=== PATIENT | male | born 1980 | race African-American/Black ===

== ENCOUNTER 2017-02-10 07:11 | Emergency (ER) | payer MEDICAID ==
[~2017-02-10] VITALS: Ht 177.8 cm; Wt 109.0 kg
[2017-02-10] MEDS ORDERED: ONDANSETRON 4MG ODT PO ONE (10:30)
[2017-02-10] MEDS ORDERED: CEFTRIAXONE SODIUM 250 MG/VIAL IM ONE (10:30)
[2017-02-10] MEDS ORDERED: AZITHROMYCIN 500 MG TABLET PO ONE (10:30)
[2017-02-10] MEDS ORDERED: LIDOCAINE HCL 1% 20ML VIAL (Pyxis) INJ INFIL ONE (10:30)
[2017-02-10] MEDS ORDERED: ACETAMINOPHEN 500MG TABLET PO ONE (10:30)
[2017-02-10 11:30] VITALS: BP 134/84
== END 2017-02-10 11:30 | disposition home or self-care (01) ==
LOC: ER 08:33
DX: N34.2 Other urethritis (principal); L72.3 Sebaceous cyst; M25.561 Pain in right knee; J45.909 Unspecified asthma, uncomplicated; Z98.84 Bariatric surgery status; Z88.8 Allergy status to other drugs, medicaments and biological substances
CPT/HCPCS: 96372; 99284; J0696; J3490; Q0162; Z7610

== ENCOUNTER 2017-03-25 18:14 | Emergency (ER) | payer MEDICAID ==
[~2017-03-25] VITALS: Ht 170.2 cm; Wt 113.0 kg
[2017-03-25 18:25] VITALS: BP 146/92
== END 2017-03-26 | disposition left against medical advice (07) ==
LOC: ER 18:25
DX: Z04.1 Encounter for examination and observation following transport accident (principal); Z53.21 Procedure and treatment not carried out due to patient leaving prior to being seen by health care provider

== ENCOUNTER 2017-06-12 19:23 | Emergency (ER) | payer MEDICAID | END 2017-06-12 21:24 | disposition left against medical advice (07) | LOC: ER 19:23 | DX: R42 Dizziness and giddiness (principal); Z53.21 Procedure and treatment not carried out due to patient leaving prior to being seen by health care provider | CPT/HCPCS: 93005 ==

== ENCOUNTER 2018-06-04 13:36 | Emergency (ER) | payer MEDICAID | END 2018-06-04 15:02 | disposition left against medical advice (07) | LOC: ER 13:36 | DX: Z53.21 Procedure and treatment not carried out due to patient leaving prior to being seen by health care provider (principal) ==

== ENCOUNTER 2018-06-12 19:59 | Emergency (ER) | payer MEDICAID ==
[~2018-06-12] VITALS: Ht 177.8 cm; Wt 108.0 kg
[2018-06-12] MEDS ORDERED: SODIUM CHLORIDE 0.9% 1,000 ML IV ONE (22:05)
[2018-06-12] MEDS ORDERED: DEXAMETHASONE 10 MG/ML VIAL IV ONE (22:15)
[2018-06-12] MEDS ORDERED: ACETAMINOPHEN 500MG TABLET PO ONE (22:15)
[2018-06-12 22:39] LABS: BASOPHILS % 0.3 % (0.0-2.0); EOSINOPHILS % 0.3 % (0.0-5.0); HEMATOCRIT. 34.2 % (42.0-52.0); HEMOGLOBIN. 10.8 g/dL (14.0-18.0); LYMPHOCYTES % 22.7 % (20.0-50.0); MEAN CORPUSCULAR HEMOGLOBIN 24.3 pg (28.0-32.0); MEAN CORPUSCULAR VOLUME 76.9 fL (80.0-94.0); MEAN PLATELET VOLUME 8.7 fl (7.4-10.4); MONOCYTES % 9.3 % (2.0-8.0); NEUTROPHILS % 67.4 % (40.0-76.0); PLATELET 309 x1000/uL (130-400); RED BLOOD CELL COUNT 4.45 mill/uL (4.7-6.1); RED CELL DISTRIBUTION WIDTH 18.9 % (11.6-14.6)
[2018-06-12 22:43] LABS: CHLORIDE 104 mEq/L (98-107)
[2018-06-12 22:56] LABS: CLARITY URINE CLEAR (CLEAR); COLOR URINE YELLOW (YELLOW); KETONES URINE NEGATIVE (NEGATIVE); LEUKOCYTE ESTERASE URINE NEGATIVE (NEGATIVE); NITRITE URINE NEGATIVE (NEGATIVE); OCCULT BLOOD URINE NEGATIVE (NEGATIVE); PH URINE 6.5 (4.5-8.0); PROTEIN URINE NEGATIVE (NEGATIVE); SPECIFIC GRAVITY URINE 1.013 (1.005-1.030)
[2018-06-13] MEDS ORDERED: ACETAMINOPHEN WITH CODEINE 300/30MG TABLET PO ONE (00:30)
[2018-06-13 00:47] VITALS: BP 150/94
== END 2018-06-13 00:50 | disposition home or self-care (01) ==
LOC: ER 19:59
DX: J02.9 Acute pharyngitis, unspecified (principal); B34.9 Viral infection, unspecified; F12.10 Cannabis abuse, uncomplicated; Z88.6 Allergy status to analgesic agent; Z98.84 Bariatric surgery status; Z90.49 Acquired absence of other specified parts of digestive tract
CPT/HCPCS: 36415; 80053; 81003; 85025; 87070; 87430; 93005; 96374; 99284; J1100; J7030

== ENCOUNTER 2018-07-04 07:28 | Emergency (ER) | payer MEDICAID ==
[~2018-07-04] VITALS: Ht 177.8 cm; Wt 108.0 kg
[2018-07-04 07:40] VITALS: BP 140/75
== END 2018-07-04 08:22 | disposition home or self-care (01) ==
LOC: ER 07:28
DX: J04.0 Acute laryngitis (principal); R49.0 Dysphonia; J45.909 Unspecified asthma, uncomplicated; F17.200 Nicotine dependence, unspecified, uncomplicated; Z90.89 Acquired absence of other organs; Z98.84 Bariatric surgery status; Z88.6 Allergy status to analgesic agent
CPT/HCPCS: 99281; 99283

== ENCOUNTER 2018-09-25 07:57 | Emergency (ER) | payer MEDICAID ==
[~2018-09-25] VITALS: Ht 177.8 cm; Wt 102.0 kg
[2018-09-25] MEDS ORDERED: PENICILLIN G BENZATHINE 2,400,000 UNITS/4ML SYR IM ONE (09:00)
[2018-09-25 09:39] VITALS: BP 120/66
== END 2018-09-25 09:40 | disposition home or self-care (01) ==
LOC: ER 07:57
DX: A51.0 Primary genital syphilis (principal); J45.909 Unspecified asthma, uncomplicated; Z90.89 Acquired absence of other organs; Z98.890 Other specified postprocedural states; Z88.6 Allergy status to analgesic agent
CPT/HCPCS: 86592; 86593; 86780; 96372; 99283; J0561

== ENCOUNTER 2018-11-29 08:30 | Emergency (ER) | payer MEDICAID ==
[~2018-11-29] VITALS: Ht 177.8 cm; Wt 97.7 kg
[2018-11-29] MEDS ORDERED: HEMORRHOIDAL SUPP PR ONE (10:45)
[2018-11-29 10:55] LABS: HEMATOCRIT 37.9 % (42.0-52.0); HEMOGLOBIN 12.3 g/dL (14.0-18.0); MEAN CORPUSCULAR HEMOGLOBIN 29.2 pg (28.0-32.0); MEAN CORPUSCULAR VOLUME 89.9 fL (80.0-94.0); PLATELET 265 x1000/uL (130-400); RED BLOOD CELL COUNT 4.21 mill/uL (4.7-6.1); RED CELL DISTRIBUTION WIDTH 14.9 % (11.6-14.6)
[2018-11-29 11:33] VITALS: BP 128/78
== END 2018-11-29 11:34 | disposition home or self-care (01) ==
LOC: ER 08:33
DX: K64.8 Other hemorrhoids (principal)
CPT/HCPCS: 36415; 85027; 99283

== ENCOUNTER 2019-05-22 06:08 | Emergency (ER) | payer MEDICAID ==
[~2019-05-22] VITALS: Ht 177.8 cm; Wt 90.0 kg
[2019-05-22 06:56] VITALS: BP 105/76
== END 2019-05-22 07:24 | disposition home or self-care (01) ==
LOC: ER 06:08
DX: H10.31 Unspecified acute conjunctivitis, right eye (principal); Z88.6 Allergy status to analgesic agent
CPT/HCPCS: 99283

== ENCOUNTER 2019-06-04 13:43 | Emergency (ER) | payer MEDICAID ==
[~2019-06-04] VITALS: Ht 177.8 cm; Wt 90.0 kg
[2019-06-04] MEDS ORDERED: vitamin c (14:31)
[2019-06-04] MEDS ORDERED: iron (14:31)
[2019-06-04] MEDS ORDERED: truvada (14:31)
[2019-06-04] MEDS ORDERED: AZITHROMYCIN 500 MG TABLET PO ONE (15:30)
[2019-06-04] MEDS ORDERED: CEFTRIAXONE SODIUM 250 MG/VIAL IM ONE (15:30)
[2019-06-04 16:12] VITALS: BP 140/82
[2019-06-04 16:16] LABS: CLARITY URINE CLEAR (CLEAR); COLOR URINE DK YELLOW (YELLOW); KETONES URINE TRACE (NEGATIVE); LEUKOCYTE ESTERASE URINE NEGATIVE (NEGATIVE); NITRITE URINE NEGATIVE (NEGATIVE); OCCULT BLOOD URINE NEGATIVE (NEGATIVE); PH URINE 5.5 (4.5-8.0); PROTEIN URINE NEGATIVE (NEGATIVE); SPECIFIC GRAVITY URINE 1.023 (1.005-1.030); UROBILINOGEN URINE 0.2 E.U./dL (0.2-1.0)
== END 2019-06-04 16:13 | disposition home or self-care (01) ==
LOC: ER 13:43
DX: Z20.2 Contact with and (suspected) exposure to infections with a predominantly sexual mode of transmission (principal)
CPT/HCPCS: 81003; 87086; 96372; 99283; J0696

== ENCOUNTER 2020-03-26 19:31 | Emergency (ER) | payer MEDICAID ==
[~2020-03-26] VITALS: Ht 185.4 cm; Wt 91.0 kg
[~2020-03-26 19:31] MED LIST: iron; truvada; vitamin c
[2020-03-26] MEDS ORDERED: CEFTRIAXONE SODIUM 500 MG/VIAL IM ONE (21:00)
[2020-03-26 21:38] LABS: CLARITY URINE CLEAR (CLEAR); COLOR URINE YELLOW (YELLOW); KETONES URINE TRACE (NEGATIVE); LEUKOCYTE ESTERASE URINE TRACE (NEGATIVE); NITRITE URINE NEGATIVE (NEGATIVE); OCCULT BLOOD URINE NEGATIVE (NEGATIVE); PH URINE 5.5 (4.5-8.0); PROTEIN URINE NEGATIVE (NEGATIVE); SPECIFIC GRAVITY URINE 1.025 (1.005-1.030)
[2020-03-26 22:26] VITALS: BP 135/83
[2020-03-29 04:07] LABS: NEISSERIA GONORRHOEAE NAA Negative (Negative)
== END 2020-03-26 22:27 | disposition home or self-care (01) ==
LOC: ER 19:31
DX: N34.2 Other urethritis (principal)
CPT/HCPCS: 81003; 87491; 87591; 96372; 99283; J0696

== ENCOUNTER 2021-12-12 19:06 | Emergency (ER) | payer OTHER, MEDICAID ==
[~2021-12-12] VITALS: Ht 177.8 cm; Wt 82.0 kg
[2021-12-12 19:08] VITALS: BP 147/91
[2021-12-12] MEDS ORDERED: PENICILLIN G BENZATHINE 2,400,000 UNITS/4ML SYR IM ONE (22:15)
[2021-12-12] MEDS ORDERED: DOXY100C5 MT (22:29)
[2021-12-12] MEDS ORDERED: CEFTRIAXONE SODIUM 500 MG/VIAL IM ONE (22:30)
[2021-12-12] MEDS ORDERED: LIDOCAINE HCL 1% 20ML VIAL (Pyxis) INJ INFIL ONE (22:30)
[2021-12-12] MEDS ORDERED: DOXYCYCLINE HYCLATE 100MG CAPSULE PO ONE (22:30)
[2021-12-12] MEDS ORDERED: LIDOCAINE HCL 1% 10 MG/ML 10ML VIAL INJ NR (22:30)
== END 2021-12-12 23:45 | disposition home or self-care (01) ==
LOC: ER 19:06
DX: A53.9 Syphilis, unspecified (principal); J45.909 Unspecified asthma, uncomplicated; Z88.6 Allergy status to analgesic agent
CPT/HCPCS: 86592; 86593; 86780; 96372; 99284; J0561; J0696; J3490

== ENCOUNTER 2024-10-16 00:02 | Emergency (ER) | payer OTHER, MEDICAID ==
[~2024-10-16] VITALS: Ht 177.8 cm; Wt 88.0 kg
[~2024-10-16 00:02] MED LIST changes: +DOXY100C5 MT
[2024-10-16 00:13] VITALS: O2SAT 100
[2024-10-16 01:19] LABS: CLARITY URINE CLEAR (CLEAR); COLOR URINE YELLOW (YELLOW); GLUCOSE URINE NEGATIVE (NEGATIVE); KETONES URINE NEGATIVE (NEGATIVE); LEUKOCYTE ESTERASE URINE NEGATIVE (NEGATIVE); NITRITE URINE NEGATIVE (NEGATIVE); OCCULT BLOOD URINE NEGATIVE (NEGATIVE); PH URINE 5.5 (4.5-8.0); PROTEIN URINE NEGATIVE (NEGATIVE); SPECIFIC GRAVITY URINE 1.013 (1.005-1.030); UROBILINOGEN URINE 1.0 E.U./dL (0.2-1.0)
[2024-10-16] MEDS: DOXYCYCLINE HYCLATE 100MG CAPSULE PO ONE (02:14)
[2024-10-16] MEDS: CEFTRIAXONE SODIUM 500MG VIAL IM ONE (02:16)
[2024-10-16 02:24] VITALS: BP 142/92; PULSE 64; RESP 18; TEMP 36.9; O2SAT 100
[2024-10-18 06:12] LABS: CHLAMYDIA TRACHOMATIS NAA Negative (Negative); NEISSERIA GONORRHOEAE NAA Negative (Negative)
== END 2024-10-16 02:27 | disposition home or self-care (01) ==
LOC: ER 00:02
DX: N50.82 Scrotal pain (principal); J45.909 Unspecified asthma, uncomplicated; Z88.6 Allergy status to analgesic agent
CPT/HCPCS: 99283; 87491; 87591; 81003; 96372; J0696